=== PATIENT | male | born 1970 ===

== ENCOUNTER 2016-12-14 08:36 | Emergency (ER) | payer BC ==
[2016-12-14 08:46] VITALS: BP 111/69
--- NOTE | 2016-12-14 09:00 | ED ---
Skin Complaint - HPI Summary HPI Summary: 46 y/o male with c/c of vesicular rash in the roght side of the face for approximately 1 week. He reports getting worse therefore he came to the for further assessment. Denies any fever or chills, denies any eye pain, swelling or visual changes. Denies any headache or neck pain. - History of Current Complaint Chief Complaint: [facility] Time Seen by Provider: 12/14/16 08:50 Stated Complaint: SKIN COMPLAINT Hx Obtained From: Patient Onset/Duration: Started Weeks Ago - i week ago Timing: Constant Onset Severity: Moderate Current Severity: Mild Pain Scale Used: 0-10 Numeric - 2 out of 10 Skin Location: Face - right side of forehead. No eye complaints. No eye pain or increase in lacrimation. Aggravating Symptom(s): Nothing Alleviating Symptom(s): Nothing Associated Signs & Symptoms: Negative - None Related History: Other: - None Similar Episode/Dx as: none - Allergy/Home Medications Allergies/Adverse Reactions: Allergies Allergy/AdvReac Type Severity Reaction Status Date / Time No Known Allergies Allergy Verified 12/14/16 08:46 PMH/Surg Hx/FS Hx/Imm Hx Endocrine/Hematology History: Denies: Hx Diabetes, Hx Thyroid Disease Cardiovascular History: Denies: Hx Hypertension Respiratory History: Denies: Hx Asthma, Hx Chronic Obstructive Pulmonary Disease (COPD) GI History: Denies: Hx Ulcer Infectious Disease History: No Infectious Disease History: Denies: Hx Hepatitis, Hx Human Immunodeficiency Virus (HIV), Traveled Outside the [place] in Last 30 Days - Social History Alcohol Use: Occasionally Substance Use Type: Reports: None Smoking Status (MU): Never Smoked Tobacco Review of Systems Constitutional: Negative Eyes: Negative - Denies any eye pain, increase in lacrimation ENT: Negative Cardiovascular: Negative Respiratory: Negative Gastrointestinal: Negative Genitourinary: Negative Musculoskeletal: Negative Positive: Rash - vesicular lesion in the right side of the forehead. Neurological: Negative Psychological: Normal All Other Systems Reviewed And Are Negative: Yes Physical Exam - Summary Physical Exam Summary: Vital signs: reviewed General: Patient is comfortable lying in stretcher with no signs of distress HEENT: within normal limits Lungs: CTA B/L CVS: S1 & S2 present. No murmurs appreciated. ABDOMEN: Soft, non-tender. No signs of distention. No rebound no guarding, and no masses palpated. Bowel sounds are normal. EXTREMITIES: FROM in all major joints, no edema, no cyanosis or clubbing. NEURO: Alert and oriented x 3. No acute neurological deficits. Speech is normal and follows commands. SKIN: Dry and warm. Ride side vesicular lesions. Triage Information Reviewed: Yes Vital Signs On Initial Exam: Initial Vitals Temp Pulse Resp BP Pulse Ox 97.7 F 83 20 111/69 100 12/14/16 08:40 12/14/16 08:40 12/14/16 08:40 12/14/16 08:40 12/14/16 08:40 Vital Signs Reviewed: Yes Diagnostics - Vital Signs Vital Signs Temp Pulse Resp BP Pulse Ox 12/14/16 08:40 97.7 F 83 20 111/69 100 - Laboratory Lab Statement: Any lab studies that have been ordered have been reviewed, and results considered in the medical decision making process. Course/Dx - Course Assessment/Plan: 46 y/o male with c/c of vesicular rash in the roght side of the face for approximately 1 week. He reports getting worse therefore he came to the for further assessment. Denies any fever or chills, denies any eye pain, swelling or visual changes. Denies any headache or neck pain. I suspect patient has Herpes Zoster. He was given a Rx for Valtrex for the next 7 days. I discussed all the findings and test results with the patient. Patient was instructed to return to the emergency room immediately if any of the symptoms return or worsens. Plan of care was discussed with the patient and understands and agrees. All questions were answered at patient satisfaction. There were no further complaints or concerns. Lung exam before discharge: CTA B/L. Good air exchange. No wheezing or crackles heard. CVS: S1 and S2 present. No murmurs appreciated. Patient is alert and oriented x 3. Patient is hemodynamically stable. Patient will be discharged home with follow up stonecutter in the next 2-3 days - Differential Diagnoses - Skin Complaint Differential Diagnoses: Abscess, Cellulitis, Drug Rash, Eczema - Diagnoses Provider Diagnoses: Herpes zoster Discharge - Discharge Plan Condition: Stable Disposition: HOME Prescriptions: ValACYclovir (*) [Valtrex 1 GM(*)] 1 gm PO TID #21 tab Patient Education Materials: Shingles (ED) Forms: *Work Release Referrals: No Primary Care Phys,NOPCP [Primary Care Provider] - [facility] PHYSICIAN REFERRAL [Outside]
== END 2016-12-14 09:10 | disposition home or self-care (01) ==
LOC: UCEAST 08:36
DX: B02.9 Zoster without complications (principal)
CPT/HCPCS: 99212; G0463

== ENCOUNTER 2018-03-03 17:24 | Emergency (ER) | payer SELFPAY ==
[2018-03-03 17:38] VITALS: BP 92/40
--- NOTE | 2018-03-03 18:04 | UC ---
Ana Lilia Rm Julia, scribed for Bc Landis MD on 03/03/18 at 1750 . HPI Febrile Illness - HPI Summary HPI Summary: This patient is a 47 year old M presenting to [facility] with a chief complaint of intermittent fever for the past couple days, with a maximum fever of 102, measured at home. No documented fever at Urgent Care. Reports dizziness when getting up. Denies headache, neck pain, photophobia, sore throat, ear pain, cough, CP, SOB, nausea, vomiting, diarrhea, dysuria, urinary frequency, and rashes. Patient has no other complaints. Patient declines ambulance. - History of Current Complaint Chief Complaint: UCGeneralIllness Hx Obtained From: Patient Onset/Duration: Started Days Ago Timing: Intermittent Temperature: 102 F - home Pain Intensity: 0 Pain Scale Used: 0-10 Numeric Aggravating Factors: Nothing Alleviating Factors: Nothing Associated Signs and Symptoms: Negative - Allergy/Home Medications Allergies/Adverse Reactions: Allergies Allergy/AdvReac Type Severity Reaction Status Date / Time No Known Allergies Allergy Verified 03/03/18 17:31 Home Medications: Home Medications NK [No Home Medications Reported] 03/03/18 [History Confirmed 03/03/18] PMH/Surg Hx/FS Hx/Imm Hx Previously Healthy: Yes - Surgical History Surgical History: Yes Surgery Procedure, Year, and Place: hernia repair at 18 months old - Family History Known Family History: Negative: Renal Disease - Social History Alcohol Use: Occasionally Substance Use Type: None Smoking Status (MU): Never Smoked Tobacco Review of Systems Constitutional: Fever Eyes: Negative ENT: Negative Respiratory: Negative Cardiovascular: Negative Gastrointestinal: Negative Genitourinary: Negative Neurovascular: Negative Musculoskeletal: Negative Neurological: Other - dizziness when standing All Other Systems Reviewed And Are Negative: Yes Physical Exam - Summary Physical Exam Summary: VITAL SIGNS: Reviewed. GENERAL: Patient is a well-developed and nourished male who is lying comfortable in the stretcher. Patient is not in any acute respiratory distress. HEAD AND FACE: Normocephalic EYES: PERRLA, EOMI x 2. EARS: Hearing grossly intact. MOUTH: Oropharynx within normal limits. NECK: Supple, trachea is midline, no adenopathy, no JVD, no carotid bruit. CHEST: Symmetric, no tenderness at palpation LUNGS: Clear to auscultation bilaterally. No wheezing or crackles. CVS: Regular rate and rhythm, S1 and S2 present, no murmurs or gallops appreciated. Hypotensive ABDOMEN: Soft, non-tender. Bowel sounds are normal. No abdominal abnormal pulsations. EXTREMITIES: Full ROM in all major joints, no edema, no cyanosis or clubbing. NEURO: Alert and oriented x 3. No acute neurological deficits. Speech is normal and follows commands. SKIN: Dry and warm Triage Information Reviewed: Yes Vital Signs: Initial Vital Signs Temp 98.9 F 03/03/18 17:31 Pulse 99 03/03/18 17:31 Resp 20 03/03/18 17:31 BP 92/40 03/03/18 17:31 Pulse Ox 94 03/03/18 17:31 Vital Signs Reviewed: Yes Course/Dx - Course Assessment/Plan: Patient doesn't have any complaints. The physical exam is basically benign except the patient is hypotensive. I took the blood pressure myself and is 80/40. The patient is not tachycardic. Maybe the patient is dehydrated therefore he has low blood pressure however he needs a workup with blood work since the patient is complaining of fevers. I discussed the findings with the patient and the patient's and the need to go further assessment in the emergency department and they agree. The patient declined ambulance. Dr. Davidson the attending physician at [facility] aware of the patient going to the ER. - Diagnoses Clinic Provider Diagnoses: Hypotension. intermittent fevers Discharge - Sign-Out/Discharge Documenting (check all that apply): Discharge/Admit/Transfer - Discharge Plan Condition: Stable Disposition: HOME Patient Education Materials: Hypotension (ED) Referrals: Tawny Azul MD [Primary Care Provider] - Additional Instructions: Patient will be transferred to the emergency department for further workup and management. Patient declined ambulance. - Billing Disposition and Condition Condition: STABLE Disposition: HOME The documentation as recorded by the Ana Lilia aguillon Julia accurately reflects the service I personally performed and the decisions made by me, Bc Landis MD.
== END 2018-03-03 18:00 | disposition home or self-care (01) ==
LOC: UCEAST 17:24
DX: R50.9 Fever, unspecified (principal); I95.9 Hypotension, unspecified
CPT/HCPCS: 99212; G0463

== ENCOUNTER 2018-03-03 18:17 | Emergency (ER) | payer SELFPAY ==
[2018-03-03] MEDS ORDERED: NS 0.9% 1000 ML* 2,000 ML IV ONE (19:26)
[2018-03-03 20:14] LABS: ABS Basophils 0 10^3/ul (0-0.2); ABS Eosinophils 0 10^3/ul (0-0.6); ABS Lymphocytes 0.8 10^3/ul (1.0-4.8); ABS Monocytes 0.6 10^3/ul (0-0.8); ABS Neutrophils 3.5 10^3/ul (1.5-7.7); ABS Nucleated RBC 0 10^3/ul; Eosinophil % 0.1 % (0-6); Hematocrit 43 % (42-52); Hemoglobin 14.6 g/dl (14.0-18.0); Lymphocyte % 15.9 % (25-47); Mean Corpuscular HGB Conc 34 g/dl (31-36); Mean Corpuscular Hemoglobin 31 pg (27-31); Mean Corpuscular Volume 91 fL (80-94); Mean Platelet Volume 8.2 um3 (7.4-10.4); Nucleated Red Blood Cells % 0; Platelet Count 216 10^3/ul (150-450); Red Blood Count 4.73 10^6/ul (4.0-5.4); Red Cell Distribution Width 13 % (10.5-15)
[2018-03-03 20:30] LABS: Urine Appearance Cloudy; Urine Blood 1+ (Negative); Urine Color Amber; Urine Ketones 1+ (Negative); Urine Protein 1+(30 mg/dL) (Negative); Urine Urobilinogen Positive (Negative)
[2018-03-03] MEDS ORDERED: DOXYcycline CAP(*) 100 MG PO ONE (21:34)
--- NOTE | 2018-03-03 21:45 | ED ---
Christin Rm Elizabeth, scribed for Juan M Ramos MD on 03/03/18 at 1928 . HPI Febrile Illness - History of Current Complaint Chief Complaint: EDFever Time Seen by Provider: 03/03/18 19:14 Hx Obtained From: Patient, Family/Meat Supervisor - patient's Onset/Duration: Started Days Ago, Atraumatic, Still Present Timing: Constant Initial Severity: Mild Current Severity: Mild Pain Intensity: 0 Pain Scale Used: 0-10 Numeric Aggravating Factors: Nothing Alleviating Factors: Nothing Associated Signs and Symptoms: Negative - NEGATIVE DIARRHEA, NEGATIVE COUGH, NEGATIVE SORE THROAT, NEGATIVE RASH, Chills - Allergy/Home Medications Allergies/Adverse Reactions: Allergies Allergy/AdvReac Type Severity Reaction Status Date / Time No Known Allergies Allergy Verified 03/03/18 18:20 PMH/Surg Hx/FS Hx/Imm Hx Endocrine/Hematology History: Denies: Hx Diabetes, Hx Thyroid Disease Cardiovascular History: Denies: Hx Hypertension Respiratory History: Denies: Hx Asthma, Hx Chronic Obstructive Pulmonary Disease (COPD) GI History: Denies: Hx Ulcer Musculoskeletal History: Reports: Other Musculoskeletal History - shingles - Surgical History Surgery Procedure, Year, and Place: hernia repair at 18 months old Infectious Disease History: No Infectious Disease History: Denies: Hx Hepatitis, Hx Human Immunodeficiency Virus (HIV), Traveled Outside the [place] in Last 30 Days - Family History Known Family History: Negative: Renal Disease - Social History Alcohol Use: Occasionally Substance Use Type: Reports: None Smoking Status (MU): Never Smoked Tobacco Review of Systems Positive: Fever, Chills, Fatigue Negative: Epistaxis, Sore Throat, Nasal Discharge Negative: Cough Negative: Abdominal Pain, Diarrhea Negative: Headache All Other Systems Reviewed And Are Negative: Yes Physical Exam - Summary Physical Exam Summary: Appearance: Well-appearing, Well-nourished, lying in bed comfortably Skin: Warm, dry, no obvious rash Eyes: sclera anicteric, no conjunctival pallor ENT: mucous membranes moist, pharynx appears normal Neck: Supple, nontender Respiratory: Clear to auscultation, no signs of respiratory distress Cardiovascular: Normal S1, S2. No murmurs. Normal distal pulses in tibial and radial bilaterally. Abdomen: Soft, nontender, normal active bowel sounds present Musculoskeletal: Normal, Strength/ROM Intact Neurological: A&Ox3, awake and alert, mentation is normal, speech is fluent and appropriate Psychiatric: affect is normal, does not appear anxious or depressed Triage Information Reviewed: Yes Vital Signs On Initial Exam: Initial Vitals Temp Pulse Resp BP Pulse Ox 99.7 F 106 16 101/61 95 03/03/18 18:20 03/03/18 18:20 03/03/18 18:20 03/03/18 18:20 03/03/18 18:20 Vital Signs Reviewed: Yes Diagnostics - Vital Signs Vital Signs Temp Pulse Resp BP Pulse Ox 03/03/18 18:44 98 94 03/03/18 18:42 99 F 97 18 103/57 94 03/03/18 18:41 103/57 03/03/18 18:20 99.7 F 106 16 101/61 95 - Laboratory Lab Results: Lab Results 03/03/18 03/03/18 03/03/18 Range/Units 19:56 19:56 19:56 WBC 5.0 (3.5-10.8) 10^3/ul RBC 4.73 (4.0-5.4) 10^6/ul Hgb 14.6 (14.0-18.0) g/dl Hct 43 (42-52) % MCV 91 (80-94) fL MCH 31 (27-31) pg MCHC 34 (31-36) g/dl RDW 13 (10.5-15) % Plt Count 216 (150-450) 10^3/ul MPV 8.2 (7.4-10.4) um3 Neut % (Auto) 71.2 (38-83) % Lymph % (Auto) 15.9 L (25-47) % Lyman % (Auto) 11.9 H (0-7) % Eos % (Auto) 0.1 (0-6) % Baso % (Auto) 0.9 (0-2) % Absolute Neuts (auto) 3.5 (1.5-7.7) 10^3/ul Absolute Lymphs (auto) 0.8 L (1.0-4.8) 10^3/ul Absolute Monos (auto) 0.6 (0-0.8) 10^3/ul Absolute Eos (auto) 0 (0-0.6) 10^3/ul Absolute Basos (auto) 0 (0-0.2) 10^3/ul Absolute Nucleated RBC 0 10^3/ul Nucleated RBC % 0 Smear Path Review Pending Sodium 137 L (139-145) mmol/L Potassium 3.9 (3.5-5.0) mmol/L Chloride 104 (101-111) mmol/L Carbon Dioxide 25 (22-32) mmol/L Anion Gap 8 (2-11) mmol/L BUN 14 (6-24) mg/dL Creatinine 1.19 H (0.67-1.17) mg/dL Est GFR ( Amer) 83.6 (>60) Est GFR (Non-Af Amer) 65.0 (>60) BUN/Creatinine Ratio 11.8 (8-20) Glucose 110 H (70-100) mg/dL Lactic Acid (0.5-2.0) mmol/L Calcium 8.8 (8.6-10.3) mg/dL Total Bilirubin 0.90 (0.2-1.0) mg/dL AST 22 (13-39) U/L ALT 20 (7-52) U/L Alkaline Phosphatase 76 (34-104) U/L Total Protein 7.1 (6.4-8.9) g/dL Albumin 4.1 (3.2-5.2) g/dL Globulin 3.0 (2-4) g/dL Albumin/Globulin Ratio 1.4 (1-3) Urine Color [place] Urine Appearance Cloudy Urine pH 5.0 (5-9) Ur Specific [place] 1.030 (1.010-1.030) Urine Protein 1+(30 mg/dl) A (Negative) Urine Ketones 1+ A (Negative) Urine Blood 1+ A (Negative) Urine Nitrate Negative (Negative) Urine Bilirubin Negative (Negative) Urine Urobilinogen Positive A (Negative) Ur Leukocyte Esterase Negative (Negative) Urine WBC (Auto) Trace(0-5/hpf) (Absent) Urine RBC (Auto) 3+(>10/hpf) A (Absent) Urine Bacteria Absent (Absent) Urine Glucose Negative (Negative) Blood Parasite Screen Pending 03/03/18 Range/Units 19:56 WBC (3.5-10.8) 10^3/ul RBC (4.0-5.4) 10^6/ul Hgb (14.0-18.0) g/dl Hct (42-52) % MCV (80-94) fL MCH (27-31) pg MCHC (31-36) g/dl RDW (10.5-15) % Plt Count (150-450) 10^3/ul MPV (7.4-10.4) um3 Neut % (Auto) (38-83) % Lymph % (Auto) (25-47) % Lyman % (Auto) (0-7) % Eos % (Auto) (0-6) % Baso % (Auto) (0-2) % Absolute Neuts (auto) (1.5-7.7) 10^3/ul Absolute Lymphs (auto) (1.0-4.8) 10^3/ul Absolute Monos (auto) (0-0.8) 10^3/ul Absolute Eos (auto) (0-0.6) 10^3/ul Absolute Basos (auto) (0-0.2) 10^3/ul Absolute Nucleated RBC 10^3/ul Nucleated RBC % Smear Path Review Sodium (139-145) mmol/L Potassium (3.5-5.0) mmol/L Chloride (101-111) mmol/L Carbon Dioxide (22-32) mmol/L Anion Gap (2-11) mmol/L BUN (6-24) mg/dL Creatinine (0.67-1.17) mg/dL Est GFR ( Amer) (>60) Est GFR (Non-Af Amer) (>60) BUN/Creatinine Ratio (8-20) Glucose (70-100) mg/dL Lactic Acid 1.1 (0.5-2.0) mmol/L Calcium (8.6-10.3) mg/dL Total Bilirubin (0.2-1.0) mg/dL AST (13-39) U/L ALT (7-52) U/L Alkaline Phosphatase (34-104) U/L Total Protein (6.4-8.9) g/dL Albumin (3.2-5.2) g/dL Globulin (2-4) g/dL Albumin/Globulin Ratio (1-3) Urine Color Urine Appearance Urine pH (5-9) Ur Specific [place] (1.010-1.030) Urine Protein (Negative) Urine Ketones (Negative) Urine Blood (Negative) Urine Nitrate (Negative) Urine Bilirubin (Negative) Urine Urobilinogen (Negative) Ur Leukocyte Esterase (Negative) Urine WBC (Auto) (Absent) Urine RBC (Auto) (Absent) Urine Bacteria (Absent) Urine Glucose (Negative) Blood Parasite Screen Result Diagrams: 03/03/18 19:56 03/03/18 19:56 Lab Statement: Any lab studies that have been ordered have been reviewed, and results considered in the medical decision making process. Course/Dx - Course Assessment/Plan: This is a 47-year-old man, generally healthy who presents with acute fever without apparent source. He is at risk of tick bites and tick born illness. His lab studies are unrevealing, and particular there are no signs of ehrlichiosis on his platelet count or liver function tests. I think it would be reasonable to treat him for presumed Lyme or other tickborne illness. The patient and his are amenable to this approach - Diagnoses Provider Diagnoses: Fever Discharge - Sign-Out/Discharge Documenting (check all that apply): Discharge/Admit/Transfer - Discharge Plan Condition: Fair Disposition: HOME Prescriptions: DOXYcycline CAP(*) [DOXYcycline 100MG CAP(*)] 100 mg PO BID #28 cap Patient Education Materials: Fever in Adults (ED), Lyme Disease (ED) Referrals: Tawny Azul MD [Primary Care Provider] - - Billing Disposition and Condition Condition: FAIR Disposition: HOME The documentation as recorded by the Christin aguillon Elizabeth accurately reflects the service I personally performed and the decisions made by me, Juan M Ramos MD.
[2018-03-03 22:16] VITALS: BP 102/61
[2018-03-03 22:23] LABS: RBC Parasite Smear No Parasites Seen (No Parasite)
== END 2018-03-03 22:19 | disposition home or self-care (01) ==
LOC: ED 18:17
DX: R50.9 Fever, unspecified (principal)
CPT/HCPCS: 36415; 80053; 81003; 81015; 83605; 85025; 87015; 87086; 87207; 96360; 96361; 99284; A9270-GY

== ENCOUNTER 2018-07-02 21:00 | Emergency (ER) | payer BC ==
[2018-07-02 21:31] VITALS: BP 105/55
[2018-07-02] MEDS ORDERED: Amoxicillin/Clavulanate TAB* 875 MG PO ONE ×2 (22:10)
--- NOTE | 2018-07-02 22:10 | UC ---
HPI Febrile Illness - HPI Summary HPI Summary: 47-year-old male comes in with complaint of fever and feeling ill for 2 days. Fever was as high as 103 at home. His son has been sick with a sinus infection and he also has had fevers. At this time the patient does feel a little bit ill and slightly lightheaded however he does not have a headache or sore throat cough chest congestion abdominal pain dysuria diarrhea or rash. No neck stiffness or back stiffness. No prior history of prostatitis. - History of Current Complaint Chief Complaint: UCGeneralIllness Time Seen by Provider: 07/02/18 21:55 Pain Intensity: 2 - Allergy/Home Medications Allergies/Adverse Reactions: Allergies Allergy/AdvReac Type Severity Reaction Status Date / Time No Known Allergies Allergy Verified 07/02/18 21:31 PMH/Surg Hx/FS Hx/Imm Hx - Surgical History Surgical History: Yes Surgery Procedure, Year, and Place: hernia repair at 18 months old - Family History Known Family History: Negative: Renal Disease - Social History Alcohol Use: Rare Substance Use Type: None Smoking Status (MU): Never Smoked Tobacco Review of Systems Constitutional: Fever Skin: Negative Eyes: Negative ENT: Negative Respiratory: Negative Cardiovascular: Negative Gastrointestinal: Negative Genitourinary: Negative Motor: Negative Neurovascular: Negative Musculoskeletal: Negative Neurological: Negative Psychological: Negative Is Patient Immunocompromised?: No All Other Systems Reviewed And Are Negative: Yes Physical Exam Triage Information Reviewed: Yes Appearance: No Pain Distress, Well-Nourished, Ill-Appearing - mild Vital Signs: Initial Vital Signs Temp 99.6 F 07/02/18 21:27 Pulse 120 07/02/18 21:27 Resp 18 07/02/18 21:27 BP 105/55 07/02/18 21:27 Pulse Ox 96 07/02/18 21:27 Vital Signs Reviewed: Yes Eye Exam: Normal Eyes: Positive: Conjunctiva Clear ENT Exam: Normal ENT: Positive: Normal ENT inspection, Pharynx normal, Pharyngeal erythema, TMs normal Neck exam: Normal Neck: Positive: Supple, Nontender Respiratory Exam: Normal Respiratory: Positive: Lungs clear, Normal breath sounds, No respiratory distress Cardiovascular: Positive: Tachycardia Abdominal Exam: Normal Abdomen Description: Positive: Nontender, Soft Bowel Sounds: Positive: Present Musculoskeletal Exam: Normal Musculoskeletal: Positive: ROM Intact Neurological Exam: Normal Neurological: Positive: Alert, Muscle Tone Normal Psychological Exam: Normal Psychological: Positive: Normal Response To Family, Age Appropriate Behavior Skin Exam: Normal Course/Dx - Course Course Of Treatment: At this time is no obvious source of the infection. We discussed the patient's tachycardia and low blood pressure. We discussed viral versus bacterial infections and the role of antibiotics. At this time the patient prefers to be on antibiotic. We will start Augmentin. I encouraged antipyretics and fluids and rest. And close follow-up if he worsens. - Diagnoses Clinic Provider Diagnoses: fever of unknown origin. Discharge - Sign-Out/Discharge Documenting (check all that apply): Patient Departure All imaging exams completed and their final reports reviewed: No Studies - Discharge Plan Condition: Stable Disposition: HOME Prescriptions: Amoxicillin/Clavulanate TAB* [Augmentin TAB 875*] 875 mg PO BID #18 tab Patient Education Materials: Fever in Adults (ED) Referrals: Tawny Azul MD [Primary Care Provider] - Additional Instructions: FOLLOW UP WITH YOUR DOCTOR. GET RECHECKED FOR ANY WORSENING OF YOUR CONDITION OR QUESTIONS OR CONCERNS. - Billing Disposition and Condition Condition: STABLE Disposition: Home
== END 2018-07-02 22:22 | disposition home or self-care (01) ==
LOC: UCEAST 21:00
DX: R50.9 Fever, unspecified (principal)
CPT/HCPCS: 99212; A9270-GY; G0463